=== PATIENT | male | born 1965 | race Caucasian/White ===

== ENCOUNTER 2020-12-01 10:18 | Outpatient (REF) | payer OTHER, SELFPAY ==
[2020-12-01 13:20] LABS: Hemoglobin 15.3 g/dl (14.0-18.0); Mean Corpuscular Hemoglobin 31.5 pg (27.0-33.0); Mean Corpuscular Volume 92.8 fL (80-98); Mean Platelet Volume 9.6 fL (9.4-12.4); Platelet Count 202 X10*3/uL (160-400); Red Blood Count 4.85 X10*6/uL (4.60-5.80); Red Cell Distribution Width 11.8 % (11.0-16.0); White Blood Count 7.9 X10*3/uL (4.8-10.8)
[2020-12-01 13:42] LABS: Alanine Aminotransferase 32 U/L (0-40); Albumin Level 4.5 g/dL (3.5-5.0); Alkaline Phosphatase 129 U/L (39-117); Aspartate Amino Transferase 23 U/L (5-37); Bilirubin Direct 0.2 mg/dL (0.0-0.5); Bilirubin Total 0.4 mg/dL (0.0-1.0); Total Protein 6.8 g/dL (6.5-8.0)
[2020-12-01 13:45] LABS: Partial Thromboplastin Time 32.8 SEC (24.1-38.0)
== END 2020-12-01 10:19 | disposition home or self-care (01) ==
LOC: HO.10HDL 10:18
PROVIDERS: Visit Provider Internal Medicine Gastroenterology
DX: R74.8 Abnormal levels of other serum enzymes (principal)
CPT/HCPCS: 36415; 80076; 85027; 85610; 85730

== ENCOUNTER 2020-12-17 07:33 | Day surgery (SDC) | payer OTHER, SELFPAY ==
--- NOTE | ~2020-12-17 | US_ITS ---
EXAMINATION: US GUIDED LIVER BIOPSY CLINICAL INFORMATION: Elevated liver function tests. COMPARISON: None TECHNIQUE: Procedure and risks and benefits including an infection were discussed with the patient, and informed consent was obtained. Using ultrasound guidance and a coaxial system, access to the right lobe of the liver was obtained. Three 20-gauge core biopsies were obtained. There was no complication. Patient received Versed 2 mg and fentanyl 100 mcg intravenously during the procedure. Total sedation time was 18 minutes. FINDINGS: The liver is echogenic. No fluid collection or hematoma post liver biopsy is seen. US/US biopsy liver IMPRESSION: Ultrasound-guided liver biopsy.
[2020-12-17 08:08] VITALS: BMI 25.8
[2020-12-17 08:19] LABS: Anion Gap 11 (12-20); Blood Urea Nitrogen 18 mg/dL (9-16); Carbon Dioxide 25 mmol/L (22-29); Chloride 107 mmol/L (96-108); Creatinine Clr Calc Pharmacy 64.2; Estimated Glomerular Filt Rate 56; Potassium 4.1 mmol/L (3.3-5.1); Sodium 139 mmol/L (135-145)
[2020-12-17 09:50] VITALS: BP 148/83; PULSE 63; RESP 18; TEMP 36.6; O2SAT 96
--- NOTE | 2020-12-17 09:51 | HO.RADPN ---
RADIOLOGY Narrative Narrative: Right lobe liver biopsy using coaxial system. 3 20g core biopsies obtained. No complication.
[2020-12-17 10:05] VITALS: BP 127/75; PULSE 56; RESP 18; O2SAT 97
[2020-12-17 10:20] VITALS: BP 128/71; PULSE 60; RESP 20; O2SAT 97
[2020-12-17 10:50] VITALS: BP 146/77; PULSE 54; RESP 20; O2SAT 97
[2020-12-17 11:50] VITALS: BP 154/82; PULSE 53; RESP 18; TEMP 36.7; O2SAT 97
== END 2020-12-17 11:58 | disposition home or self-care (01) ==
PROVIDERS: Radiology Diagnostic Radiology; Visit Provider Radiology Diagnostic Radiology
DX: R74.8 Abnormal levels of other serum enzymes (principal); R79.89 Other specified abnormal findings of blood chemistry; K76.0 Fatty (change of) liver, not elsewhere classified; N18.2 Chronic kidney disease, stage 2 (mild); Z79.899 Other long term (current) drug therapy; Z79.1 Long term (current) use of non-steroidal anti-inflammatories (NSAID)
CPT/HCPCS: 36415; 47000; 76942; 80051; 82565; 84520; 88307; 88313; 99152; J2250; J3010

== ENCOUNTER 2022-06-16 08:22 | Day surgery (SDC) | payer OTHER, SELFPAY ==
[2022-06-16 08:46] VITALS: BMI 25.4
[2022-06-16 08:51] VITALS: BP 141/87; PULSE 66; RESP 15; TEMP 36.3; O2SAT 98
[2022-06-16] MEDS: Lactated Ringers 1,000 ML 50 ML IVCONT (09:14)
--- NOTE | 2022-06-16 09:18 | HO.ANESPROP2 ---
COUNTS INCLUDE 234 BEDS AT THE [facility] Past Medical History Medical History Bipolar 1 disorder CKD (chronic kidney disease), stage II Colon polyps Elevated alkaline phosphatase level HTN (hypertension) Hyperlipidemia Surgical History Surgical History H/O colonoscopy History of bunionectomy History of cholecystectomy History of liver biopsy History of repair of ACL History of Problems with Anesthesia: No Social History Social History Patient Tobacco Use Status: Never used Tobacco Use of substances other than those prescribed or required for medical reasons: No Are you DNR?: No Advance Directives: No Advance Directives Information Provided: Yes Meds Allergies Allergy/AdvReac Type Severity Reaction Status Date / Time No Known Allergies Allergy Verified 06/16/22 08:44 Active Medications: Current Medications Lactated Ringer's (Lr) 1,000 mls @ 50 mls/hr IVCONT .Q20H INDIO Last Admin: 06/16/22 09:14 Dose: 50 mls/hr Home Medications Medication Instructions Recorded Confirmed Last Taken Type carbamazepine 200 mg 1 tab PO BID 06/15/22 06/16/22 Unknown History tablet,extended release,12 hr lamotrigine 200 mg tablet 1 tab PO DAILY 06/15/22 06/16/22 Unknown History lisinopril 10 mg tablet 1 tab PO DAILY 06/15/22 06/16/22 Unknown History quetiapine 50 mg tablet 1 tab PO BEDTIME 06/15/22 06/16/22 Unknown History cholecalciferol (vitamin D3) 25 25 mcg PO DAILY 06/16/22 06/16/22 Unknown History mcg (1,000 unit) tablet (Vitamin D3) Exam Exam Date and Time: June 16, 2022 0918 Height,Weight and Vital Signs: Height 5 ft 9 in Weight 78.018 kg Last Vital Signs Temp 97.4 F 06/16/22 08:51 Pulse 66 06/16/22 08:51 Resp 15 06/16/22 08:51 BP 141/87 H 06/16/22 08:51 Pulse Ox 98 06/16/22 08:51 O2 Del Method 06/16/22 08:51 Airway Mallampati Class: III TM Dist: >3cm Neck ROM: Full Loose/Missing/Broken Teeth: No Heart: RRR Lungs: CTA Assessment and Plan Assessment Anesthesia Assessment: Anesthesia Plan Discussed and Chart Reviewed Final Anesthetic Review History of Problems with Anesthesia: No NPO: Yes ASA Class: II Final Preanesthetic Review: Meds/Allgs Chart Reviewed, Consent Obtained/Reviewed and Anes Risks/Benef Reviewed Patient Risk: Low Procedure Risk: Low Anesthetic Plan Anesthetic Plan: MAC: Disposition: Standard PACU
--- NOTE | 2022-06-16 09:33 | MHC.SHP ---
Pre-Procedural Eval Section A Date of Service: 06/16/22 The patient is an INPATIENT: No Changes since office visit: No Cold of Flu in the past 2 weeks, No New Medical Problems, No Changes in Medication and No Patient answered all questions The History & Physical has been completed within 30 days and I have reviewed it.: Yes Section B Chief Complaint: Personal history of colonic polyps,screening Allergies: Allergies Allergy/AdvReac Type Severity Reaction Status Date / Time No Known Allergies Allergy Verified 06/16/22 08:44 Plan I have reviewed the history and physical and performed a pertinent physical examination on my patient. No changes have occurred unless specified. Time Spent With Patient Time: Total time managing care of this patient today ____ minutes.
--- NOTE | 2022-06-16 10:13 | P.BOP_ITS ---
Brief Operative Note Date of Service: 06/16/22 Pre-op diagnosis: screening Post-op diagnosis: same Procedure: colonosocpy Surgeon: Isra Espinal Anesthesia: MAC Was an Skip Hoist Operator used for this Procedure?: No Estimated blood loss (mL): 2 Pathology: other Condition: stable Disposition: PACU
[2022-06-16 10:15] VITALS: BP 106/64; PULSE 55; RESP 20; TEMP 36.1; O2SAT 100
[2022-06-16 10:30] VITALS: BP 111/70; PULSE 56; RESP 18; TEMP 36.1; O2SAT 96
--- NOTE | 2022-06-16 11:49 | OP_ITS ---
SURGEON: Isra Espinal MD INDICATIONS: Colon cancer screening and prior history of adenomatous colon polyps. PREOPERATIVE DIAGNOSIS: POSTOPERATIVE DIAGNOSIS: PROCEDURE PERFORMED: Colonoscopy to the terminal ileum with biopsy. ESTIMATED BLOOD LOSS: COMPLICATIONS: ANESTHESIA: Monitored anesthesia care. ASSISTANTS: SPECIMENS: DESCRIPTION OF PROCEDURE: The procedure was performed on 06/16/2022. A history and physical was performed. The risks and benefits of the procedure were explained to the patient. Informed consent was obtained. The patient was placed in the left lateral decubitus position. A digital rectal exam was performed and was found to be normal. The Olympus pediatric video colonoscope was introduced into the rectum and advanced to the cecum without difficulty. The cecum was identified by translumination, palpation, and identification of the ileocecal valve. Examination was performed. The scope was removed. He tolerated the procedure well and was returned to the recovery area in stable condition. FINDINGS: The terminal ileum was examined and appeared normal. The visualized colonic mucosa was normal. The quality of the prep was good. At 75 cm in the hepatic flexure was a less than 5 mm sessile polyp, which was removed with the biopsy forceps. No other polyps were identified. Retroflexed examination showed small internal hemorrhoids. IMPRESSION: Colon polyp. RECOMMENDATIONS: Follow up the biopsy results. MD TERI Lawler/CASSI / [id number] MTDD
== END 2022-06-16 11:03 | disposition home or self-care (01) ==
PROVIDERS: PCP Pediatrics; Visit Provider Internal Medicine Gastroenterology
PROC: 0DJD8ZZ Inspection of Lower Intestinal Tract, Via Natural or Artificial Opening Endoscopic (ICD-10-PCS; CPT 45378; principal; 2022-06-16 09:40)
DX: Z12.11 Encounter for screening for malignant neoplasm of colon (principal); Z86.010 Personal history of colon polyps; K63.5 Polyp of colon; I12.9 Hypertensive chronic kidney disease with stage 1 through stage 4 chronic kidney disease, or unspecified chronic kidney disease; N18.2 Chronic kidney disease, stage 2 (mild); E78.00 Pure hypercholesterolemia, unspecified; F31.9 Bipolar disorder, unspecified; K76.0 Fatty (change of) liver, not elsewhere classified; R74.8 Abnormal levels of other serum enzymes; Z79.899 Other long term (current) drug therapy; Z90.49 Acquired absence of other specified parts of digestive tract
CPT/HCPCS: 45380; 88305